=== PATIENT | female | born 1985 | race Caucasian/White ===

== ENCOUNTER 2020-01-19 11:21 | Emergency (ER) | payer MEDICAID, OTHER ==
[2020-01-19] MEDS ORDERED: diphenhydrAMINE INJ 50 MG/ML VIAL IM STA (11:41)
[2020-01-19] MEDS ORDERED: CHERRY SYRUP 10 ML UDC PO ONE (11:43)
[2020-01-19] MEDS ORDERED: DEXAMETHASONE 10 MG/ML VIAL PO STA (11:43)
--- NOTE | 2020-01-19 13:03 | ED Physician Documentation ---
History of Present Illness - Stated complaint Stated Complaint: SORE THROAT/NECK PX - Chief complaint Chief Complaint: Heent - History obtained from History obtained from: Patient (Pleasant 34-year-old female comes in today with chief complaint of feeling like her throat is closing. She states that she had a piece of bread with peanut butter on it this morning about 20 minutes prior to this starting. She states that she does not have any allergies to any foods that she is aware of. This is the first time this is ever happened. She denies any chest tightness, wheezing, feeling like she cannot catch her breath. Her only complaint is she feels that her sore throat is swelling. Denies fevers chills. No other concerns today) Review of Systems Constitutional: reports: Reviewed and negative Eyes: reports: Reviewed and negative Ears: reports: Reviewed and negative Nose: reports: Reviewed and negative Throat: reports: Other (Swollen neck.) Cardiac: reports: Reviewed and negative Respiratory: reports: Reviewed and negative GI: reports: Reviewed and negative : reports: Reviewed and negative PD PAST MEDICAL HISTORY - Past Medical History Past Medical History: No - Past Surgical History Past Surgical History: Yes /[employer]ANCE [employer]ENT: section - Allergies Allergies/Adverse Reactions: Allergies Allergy/AdvReac Type Severity Reaction Status Date / Time levofloxacin [From Levaquin] Allergy Hives Verified 01/19/20 11:30 promethazine [From Phenergan] Allergy Dizziness Verified 01/19/20 11:30 - Social History Does the pt smoke?: No Smoking Status: Never smoker Does the pt drink ETOH?: No Does the pt have substance abuse?: No - Immunizations Immunizations are current?: Yes PD ED PE NORMAL - General General: Alert and oriented X 3, No acute distress, Well developed/nourished - HEENT HEENT: Atraumatic, PERRL, EOMI, Ears normal, Moist mucous membranes, Pharynx benign - Neck Neck: Supple, no meningeal sign, No adenopathy - Cardiac Cardiac: RRR, No murmur - Respiratory Respiratory: No respiratory distress, Clear bilaterally - Abdomen Abdomen: Soft, Non distended PD ED PE EXPANDED - Neck Neck: Other Results - Vitals Vitals: Vital Signs - 24 hr 01/19/20 11:26 Temperature 36.9 C Heart Rate 104 H Respiratory 18 Rate Blood Pressure 137/102 H O2 Saturation 96 Oxygen O2 Source Room air PD MEDICAL DECISION MAKING - ED course Complexity details: reviewed results, re-evaluated patient, d/w patient Departure - Departure Disposition: 01 Home, Self Care Clinical Impression: Allergic reaction Qualifiers: Encounter type: initial encounter Qualified Code(s): T78.40XA - Allergy, unspecified, initial encounter Condition: Good Instructions: ED Allergic Reaction General Other Comments: As we discussed in the ED today, he most likely have developed an allergy to peanuts. For the next 24 hours I would like you to take Benadryl 25 to 50 mg every 6 hours to keep swelling in your neck reduced. Consider following up with your PCP in 1 week to discuss possible allergy testing for other allergens. My advice is also to discuss getting an EpiPen. Keep Benadryl with you in your vehicle, at all times in case this happens again, you can immediately take 50 mg of Benadryl to reduce swelling. Should your symptoms return or worsen even when taking the Benadryl you are welcome to return
[2020-01-19 13:15] VITALS: BP 138/98
== END 2020-01-19 13:15 | disposition home or self-care (01) ==
LOC: ED 11:21
DX: T78.40XA Allergy, unspecified, initial encounter (principal)
CPT/HCPCS: 96372; 99283; 99284; A9270; J1200

== ENCOUNTER 2020-01-23 13:24 | Outpatient (CLI) | payer OTHER | END 2020-01-23 13:25 | disposition home or self-care (01) | LOC: COV 13:24 | PROVIDERS: ATTEND Family Medicine | DX: R05 Cough (principal); R50.9 Fever, unspecified | CPT/HCPCS: 81599 ==

== ENCOUNTER 2020-04-23 20:00 | Emergency (ER) | payer OTHER ==
[2020-04-23 20:07] VITALS: BP 139/108
[2020-04-23] MEDS ORDERED: ONDANSETRON 4 MG/2 ML VIAL IVP STA (20:21)
[2020-04-23] MEDS ORDERED: KETOROLAC 30 MG/ML VIAL IVP STA (20:21)
--- NOTE | 2020-04-23 20:23 | ED Physician Documentation ---
PD HPI ABD PAIN - Stated complaint Stated Complaint: RT UPPER QUAD PX - Chief complaint Chief Complaint: Abd Pain - History obtained from History obtained from: Patient - Additional information Additional information: 35-year-old woman with history of ectopics and C-sections. For the last year she has had intermittent but rare right upper quadrant pain. She has had work- ups including 2 ultrasounds and an MRI of her abdomen which per her were both negative. It is been a couple of months since she had the pain but she developed acutely today in the right upper quadrant 2 PM after having lunch c onsisting of an egg salad sandwich and a salad. Pain is severe. She is nauseous but has not vomited. Review of Systems Constitutional: denies: Fever, Chills Cardiac: denies: Chest pain / pressure, Palpitations Respiratory: denies: Dyspnea PD PAST MEDICAL HISTORY - Past Surgical History Past Surgical History: Yes /PATIENT FINANCIAL ADVOCATE: section - Present Medications Home Medications: Ambulatory Orders Medication Instructions Recorded Confirmed Indomethacin [Indocin] 25 mg PO BIDWM PRN #10 capsule 04/23/20 Ondansetron Odt [Zofran] 4 mg TL Q6H PRN #10 tablet 04/23/20 - Allergies Allergies/Adverse Reactions: Allergies Allergy/AdvReac Type Severity Reaction Status Date / Time levofloxacin [From Levaquin] Allergy Hives Verified 04/23/20 20:04 promethazine [From Phenergan] Allergy Dizziness Verified 04/23/20 20:04 - Social History Does the pt smoke?: No Smoking Status: Never smoker Does the pt drink ETOH?: No Does the pt have substance abuse?: No - Immunizations Immunizations are current?: Yes PD ED PE NORMAL - Vitals Vital signs reviewed: Yes - General General: Alert and oriented X 3, Other (She is tearful and pacing) - Abdomen Abdomen: Normal bowel sounds, Soft, Other (Tender in the right upper quadrant without surgical signs) - Neuro Neuro: Alert and oriented X 3, Normal speech - Psych Psych: Normal mood, Normal affect Results - Vitals Vitals: Vital Signs - 24 hr 04/23/20 20:04 Temperature 36.5 C Heart Rate 100 Respiratory 18 Rate Blood Pressure 139/108 H O2 Saturation 99 Oxygen O2 Source Room air - Labs Labs: Laboratory Tests 04/23/20 04/23/20 04/23/20 20:12 20:35 20:35 WBC 12.8 H RBC 4.64 Hgb 13.9 Hct 40.6 MCV 87.5 MCH 30.0 MCHC 34.2 RDW 12.8 Plt Count 345 MPV 10.3 Neut # (Auto) 8.2 H Lymph # (Auto) 3.3 Sanders # (Auto) 1.0 Eos # (Auto) 0.3 Baso # (Auto) 0.1 Absolute Nucleated RBC 0.00 Nucleated RBC % 0.0 Sodium 139 Potassium 3.4 L Chloride 100 L Carbon Dioxide 26 Anion Gap 13.0 BUN 11 Creatinine 0.6 Estimated GFR (MDRD) 112 Glucose 100 Calcium 9.4 Total Bilirubin 0.7 AST 19 ALT 23 Alkaline Phosphatase 86 Total Protein 8.1 Albumin 4.4 Globulin 3.7 Albumin/Globulin Ratio 1.2 Lipase 49 Urine Color YELLOW Urine Clarity CLEAR Urine pH 5.5 Ur Specific [place] <=1.005 Urine Protein NEGATIVE Urine Glucose (UA) NEGATIVE Urine Ketones NEGATIVE Urine Occult Blood LARGE H Urine Nitrite NEGATIVE Urine Bilirubin NEGATIVE Urine Urobilinogen 0.2 (NORMAL) Ur Leukocyte Esterase NEGATIVE Urine RBC 0-5 Urine WBC 0-3 Ur Squamous Epith Cells RARE Squamous Urine Bacteria None Seen Ur Microscopic Review INDICATED Urine Culture Comments NOT INDICATED PD MEDICAL DECISION MAKING - ED course ED course: 35-year-old woman with recurrent right upper quadrant pain of unclear etiology. The pattern seems consistent with a biliary source, that said per her report she has had 2 ultrasounds and MRCP without definitive diagnosis. She has a HIDA scan scheduled in 8 days which I think is very appropriate. She was driving and breast-feeding And thusly requested no narcotic analgesia but after the administration of Toradol and Zofran she had excellent relief. Note made of blood in the urine, kidney stone is considered but the pattern of pain would be very atypical, and the blood can be explained by the fact that she is currently on her menses. Departure - Departure Disposition: 01 Home, Self Care Clinical Impression: Recurrent abdominal pain Condition: Good Record reviewed to determine appropriate education?: Yes Instructions: ED Abdominal Pain Unkn Cause Prescriptions: Indomethacin [Indocin] 25 mg PO BIDWM PRN #10 capsule PRN Reason: Pain Ondansetron Odt [Zofran] 4 mg TL Q6H PRN #10 tablet PRN Reason: Nausea / Vomiting Comments: Follow-up for the HIDA scan next week as scheduled. Return for new or worsening symptoms. Discharge Date/Time: 04/23/20 21:39
[2020-04-23 20:56] LABS: BILIRUBIN,URINE NEGATIVE (NEGATIVE); GLUCOSE, URINE (UA) NEGATIVE (NEGATIVE); KETONES,URINE (UA) NEGATIVE (NEGATIVE); LEUKOCYTE ESTERASE, URINE NEGATIVE (NEGATIVE); NITRITE,URINE NEGATIVE (NEGATIVE); OCCULT BLOOD,URINE LARGE (NEGATIVE); PH,URINE 5.5 PH (5.0-7.5); PROTEIN,URINE NEGATIVE (NEGATIVE); UROBILINOGEN,URINE 0.2 (NORMAL) E.U./dL (NORMAL)
[2020-04-23 20:57] LABS: CLARITY,URINE CLEAR (CLEAR)
[2020-04-23 21:04] LABS: BACTERIA,URINE None Seen /HPF (None Seen); RBC,URINE 0-5 /HPF (0-5); SQUAMOUS EPITHELIAL CELL,UR RARE Squamous (<= Few)
[2020-04-23 21:07] LABS: BASOPHILS # (AUTO) 0.1 10^3/uL (0.0-0.1); BASOPHILS % (AUTO) 0.5 %; EOSINOPHILS # (AUTO) 0.3 10^3/uL (0.0-0.7); EOSINOPHILS % (AUTO) 2.1 %; HGB - HEMOGLOBIN 13.9 g/dL (12.0-16.0); LYMPHOCYTES # (AUTO) 3.3 10^3/uL (1.5-3.5); LYMPHOCYTES % (AUTO) 25.6 %; MEAN CORPUSCULAR HGB CONC 34.2 g/dL (32.0-36.0); MEAN CORPUSCULAR VOLUME 87.5 fL (81.0-99.0); MEAN PLATELET VOLUME 10.3 fL (7.9-10.8); MONOCYTES % (AUTO) 7.6 %; NEUTROPHILS # (AUTO) 8.2 10^3/uL (1.5-6.6); NEUTROPHILS % (AUTO) 63.8 %; PLT - PLATELET COUNT 345 10^3/uL (130-450); RED BLOOD COUNT 4.64 10^6/uL (4.20-5.40); RED CELL DISTRIBUTION WIDTH 12.8 % (12.0-15.0); WHITE BLOOD COUNT 12.8 x10^3/uL (4.8-10.8)
[2020-04-23 21:21] LABS: ALBUMIN 4.4 g/dL (3.2-5.5); ALBUMIN/GLOBULIN RATIO 1.2 (1.0-2.2); BILIRUBIN,TOTAL 0.7 mg/dL (0.2-1.0); CALCIUM 9.4 mg/dL (8.5-10.3); CREATININE 0.6 mg/dL (0.4-1.0); TOTAL PROTEIN 8.1 g/dL (6.7-8.2)
== END 2020-04-23 21:39 | disposition home or self-care (01) ==
LOC: ED 20:00
DX: R10.11 Right upper quadrant pain (principal); R11.0 Nausea
CPT/HCPCS: 36415; 80053; 81001; 81003; 83690; 85025; 87086; 96374; 99283